=== PATIENT | male | born 1945 | race Caucasian/White ===

== ENCOUNTER 2024-08-09 12:50 | Outpatient (RCR) | payer MEDICARE, OTHER, SELFPAY | END 2025-02-05 23:59 | disposition home or self-care (01) | LOC: CCIC 12:50 | PROVIDERS: PCP Nurse Practitioner; Visit Provider Nurse Practitioner | DX: C61 Malignant neoplasm of prostate (principal) | CPT/HCPCS: 72195; 99211 ==

== ENCOUNTER 2024-08-09 14:31 | Outpatient (CLI) | payer MEDICARE, OTHER, SELFPAY | END 2024-08-09 14:32 | disposition home or self-care (01) | LOC: MRI 14:32 | PROVIDERS: PCP Nurse Practitioner; Visit Provider Nurse Practitioner | DX: C61 Malignant neoplasm of prostate (principal) | CPT/HCPCS: 72195 ==